=== PATIENT | male | born 1985 | race Caucasian/White ===

== ENCOUNTER 2023-07-26 01:29 | Observation (INO) | payer OTHER ==
[~2023-07-26] VITALS: Ht 167.6 cm; Wt 85.4 kg
[2023-07-26 03:36] VITALS: BP 124/84; PULSE 68; TEMP 97.9
[2023-07-26] MEDS ORDERED: Ondansetron 4 MG/2 ML VIAL IV PRN (03:45)
[2023-07-26] MEDS ORDERED: Acetaminophen 325 MG TAB PO PRN (03:45)
[2023-07-26] MEDS ORDERED: Albuterol/Ipratropium 3 MG-0.5 MG/3 ML Neb Soln IH PRN (03:45)
--- NOTE | 2023-07-26 04:46 | NUR ---
AFTER RECIEVING REPORT FROM VICENTA AT [facility], PT WAS TRANSPORTED AND ARRIVED TO MEDICAL UNIT APPROXIMATELY 0230. PT ALERT AND ORIENTED AND WAS ABLE TO BEAR WEIGHT WALKING FROM GURNEY TO ROOM. WELL APPEARING,WELL GROOMED MIDDLE AGE MAN. C/O BURNING PAIN TO RIGHT UPPER CHEST JUST BELOW PECTORAL THAT RADIATES TO R SHOULDER/SCAPULA. ASSESSMENT COMPLTE. INT TO RFA PATENT. CARDIAC WORKUP AND CARDS CONSULTED.CALL LIGHT WITHIN REACH, DENIES NEED FURTHER.
[2023-07-26 08:10] VITALS: BP 116/75; PULSE 55; TEMP 98.3
--- NOTE | 2023-07-26 08:45 | NUR ---
SW met with patient to complete intake. Patient provides he lives in [place] with spouse Dunia Portillo [phone]. Patient provides that he does not utilize DME, is independent with ADLs, and does not utilize home health services, PCP is at [facility] as well as pharmacy. Spouse is appointed as DPOA/HC. Patient plans to return to his home up on discharge. SW will continue to follow. Discharge plan: home with spouse
[2023-07-26] MEDS ORDERED: Fluticasone Nasal 50 MCG/Spray 16 GM BOTTLE NS SCH (09:00)
[2023-07-26] MEDS ORDERED: Cetirizine 10 MG TAB PO SCH (09:00)
--- NOTE | 2023-07-26 09:00 | NUR ---
PATIENT SITTING UP IN BED UPON ENTERING ROOM. MORNING MEDICATIONS ADMINISTERED. SHIFT ASSESSMENT COMPLETED. PATIENT COMPLAINING OF 5/10 CHEST PAIN BUT BELIEVES IT IS IN HIS LUNGS. PATIENT DOES ENDORSE SOME SOA AT TIMES, A COUGH, AND BASE LUNG SOUNDS ARE DIMINISHED. DR. GARCIA NOTIFIED. PATIENT DENIES ANY NEEDS AT THIS TIME. UPDATED ON PLAN OF CARE. WILL CONTINUE TO MONITOR.
[2023-07-26 10:02] LABS: BASO # 0.1 K/mm3 (0.0-0.2); BASO % 0.7 % (0.0-2.0); EOS # 0.4 K/mm3 (0.0-0.7); EOS % 4.6 % (0.0-4.0); GRAN # 5.8 K/mm3 (1.4-6.5); GRAN % 63.5 % (42.2-75.2); HEMATOCRIT 40.8 % (42.0-52.0); HEMOGLOBIN 13.9 g/dl (13.5-18.0); LYMPH # 2.3 K/mm3 (1.2-3.4); LYMPH % 25.5 % (20.0-51.0); MEAN CELL VOLUME 85 fl (80.0-100.0); MEAN CORPUSCULAR HEMOGLOBIN 29 pg (27-31); MEAN CORPUSCULAR HGB CONC 34 g/dl (33.0-37.0); MEAN PLATELET VOLUME 10.7 fl (7.4-10.4); MONO # 0.5 K/mm3 (0.1-0.6); MONO % 5.5 % (1.7-9.3); PLATELET COUNT 278 K/mm3 (130-400); RED BLOOD COUNT 4.81 M/mm3 (4.20-5.60); REDCELL DISTRIBUTION WIDTH-CV 12.6 % (11.5-14.5)
[2023-07-26 10:45] LABS: ALBUMIN 3.4 g/dL (3.5-5.0); BILIRUBIN,TOTAL 0.3 mg/dL (0.2-1.2); CALCIUM 9.4 mg/dL (8.4-10.2); CREATININE, serum 0.88 mg/dL (0.72-1.25); POTASSIUM 4.3 mEq/L (3.5-4.5); TOTAL PROTEIN 6.9 g/dl (6.2-8.1)
[2023-07-26 11:00] LABS: MAGNESIUM 1.9 mg/dL (1.6-2.6)
[2023-07-26 11:14] LABS: THYROID STIMULATING HORMONE 1.103 uIU/mL (0.350-4.940)
[2023-07-26 12:21] VITALS: BP 122/78; PULSE 60; TEMP 97.7
[2023-07-26 12:29] VITALS: BP_SYST 122
[2023-07-26 12:32] VITALS: BP_SYST 122
--- NOTE | 2023-07-26 12:34 | NUR ---
Data: Patient accepted [employer] Supervisor visit offered during S[employer]ing [employer] Supervisor rounds. Patient is a transfer from [facility] on [address]. Patient has an important event taking place at his home today. Patient has studying to do for a course he is taking. Assessment: Patient is frustrated about being in the hospital. Patient hopes to be discharged today. Plan of Care: Sintering Plant Supervisor provided supportive listening; ministry of presence; and prayer. Patient thanked Sintering Plant Supervisor for the visit. Chaplains will remain available as needed/requested while Patient is admitted to this hospital.
[2023-07-26] MEDS ORDERED: LIDOCAINE HCL100 M1 MM (13:52)
[2023-07-26] MEDS ORDERED: Phenol 1.4% Spray 180 ML BOTTLE MM PRN (14:00)
--- NOTE | 2023-07-26 15:17 | NUR ---
IV AND TELEMETRY DISCONTINUED. DISCHARGE INSTRUCTIONS REVIEWED, ALL QUESTIONS ANSWERED. PATIENT ESCORTED OFF OF UNIT BY VIA [facility] STAFF.
== END 2023-07-26 15:18 | disposition home or self-care (01) ==
LOC: MEDICAL 01:29
PROVIDERS: Physician Assistant; ADMIT Internal Medicine
DX: R07.2 Precordial pain (principal); S27.819A Unspecified injury of esophagus (thoracic part), initial encounter; X58.XXXA Exposure to other specified factors, initial encounter
CPT/HCPCS: G0378; G0379; J1650